=== PATIENT | male | born 1950 | race Caucasian/White ===

== ENCOUNTER 2016-08-07 10:10 | Day surgery (SDC) | payer MEDICARE, OTHER ==
[~2016-08-07] VITALS: Ht 180.3 cm; Wt 86.0 kg
[~2016-08-07 10:10] MED LIST: 0.9% Sodium Chloride 1,000 ML IV SCH; GLUC100016 PO; MVI PO; Sodium Chloride LOK Flush 10 mL Syringe IV PRN; fentaNYL-PF 50 mCg/mL 2 mL Inj IVPUSH PRN
[2016-08-07 10:57] VITALS: BP 117/80; PULSE 54; RESP 17; O2SAT 99
--- NOTE | 2016-08-07 11:48 | PCM.ENDCOL ---
Colonoscopy Date of Service: August 07, 2016 Physician Tony Ambrocio MD Pre Procedure Diagnosis: Screening personal history of colon polyp Post Procedure Dx & Findings: Polyp hemorrhoids Procedure Colonoscopy PROCEDURE IN DETAIL: Prep adequate Withdrawal time 11 minutes After unremarkable rectal examination the Olympus video colonoscope was inserted patient's anal canal and was advanced to cecum. Landmarks were identified including the ileocecal valve and appendiceal orifice. Scope was withdrawn systematically. Visualized colonic mucosa showed healthy shiny mucosa with normal healthy-appearing vasculature. In the ascending colon, there was a 2 mm polyp which was removed completely with cold snare. In the transverse colon there was a millimeter linear polyp which was removed completely using cold snare. In the sigmoid colon, there was a 2 mm polyp which was removed completely using cold snare. In the rectum retroflexion was done which showed hemorrhoids. Anal canal was inspected carefully on the way out and hemorrhoids noted. Impression Polyps x 3 status post complete removal Personal history of colon polyps Hemorrhoids Recommendation Repeat colonoscopy in 3 years Presedation Assessment Risks and Benefits Informed consent was obtained from the patient after all risks and benefits including but not limited to drug reaction, infection, pain, bleeding, perforation, as well as alternatives were discussed. Patient monitoring Continuous pulse oximetry, cardiac monitoring, blood pressure monitoring, IV access, and oxygen at 2L per nasal cannula. Periprocedural Fentanyl: Fentanyl 125mcg Incrementally Midazolam: Midazolam 5mg Incrementally Complications There were no periprocedural complications identified. Post Procedure Plan Post Procedure Recommendations 1. Restrict activities today. 2. Resume normal activities in the morning. 3. Resume medications. 4. Patient informed of normal post procedure side effects as bloating, drowsiness, blood streaking in the stool. 5. average risk CRCS. If colon polyps come back as: -Hyperplastic- can repeat colonoscopy in 10 years -Tubular adenoma- repeat colonoscopy in 5 years -Tubulovillous/villous adenoma- repeat colonoscopy in 3 years -If any dysplasia- return to clinic as soon as possible 6. Please don't hesitate to call me with any questions. Tony Ambrocio MD August 07, 2016 11:48
[2016-08-07 11:52] VITALS: BP 115/74; PULSE 56; RESP 16; O2SAT 97
[2016-08-07 12:04] VITALS: BP 109/71; PULSE 55; RESP 16; O2SAT 98
[2016-08-07 12:08] VITALS: BP 128/81; PULSE 60; RESP 16; O2SAT 99
--- NOTE | 2016-08-12 12:20 | PATH ---
SURGICAL PATHOLOGY Attending Physician:Tony Ambrocio M.D. CASE STATUS: Signed Out PATIENT NAME: ANA LILIA BOSTON JR PID: [id number] : 1950 DATE COLLECTED:08/07/2016 22:12 SPECIMEN: 1: Colon, Biopsy 2: Colon, Biopsy 3: Colon, Biopsy CLINICAL HISTORY: 1). ASCENDING POLYP 2). TRANSVERSE POLYP 3). SIGMOID POLYP FINAL DIAGNOSIS: 1.ASCENDING COLON POLYP: TUBULAR ADENOMA. 2.TRANSVERSE COLON POLYP: TUBULAR ADENOMA. 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 NO EVIDENCE OF MALIGNANCY. [id number] NOTE: 3. 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 GROSS DESCRIPTION: The specimen is received in three formalin filled containers labeled with the patient's name. 1). The specimen is sublabeled "ascending polyp" and consists of a 0.5 x 0.2 x 0.2 CM portion of tissue which is entirely submitted in cassette 1A. 2). The specimen is sublabeled "transverse polyp" and consists of 5 portions of tissue which aggregate to 0.3 x 0.3 x 0.2 CM. The specimen is entirely submitted in cassette 2A. 3). The specimen is sublabeled "sigmoid polyp" and consists of a 0.2 x 0.2 x 0.2 CM portion of tissue which is entirely submitted in cassette 3A. 08/07/2016 DAC MICRO DESCRIPTION: 3. The lamina propria is expanded by a proliferation of small spindled cells with oval, evenly-staining nuclei. Immunocytochemistry is done to characterize the lesion. Sections, along with appropriate controls, are incubated with the following antibodies: Vimentin:Positive S100:Negative Synaptophysin:Negative CD34:Negative This test was developed and its performance characteristics determined by [employer]. It has not been cleared or approved by the [place]. Food and Drug Administration. The FDA has determined that such clearance or approval is not necessary. This test is used for clinical purposes. It should not be regarded as investigational or for research. ICD-9 CODES: CPT CODES: 1: 30112 2: 02164 3: 21680, 82378, 26958, 61299, 21925 Electronically Signed Out Ki Auguste MD [facility] [address], [place] [address] Technical component performed at [facility], [address], [place], [address]
== END 2016-08-07 23:59 | disposition home or self-care (01) ==
LOC: END 10:10
PROVIDERS: ATTEND Internal Medicine
DX: Z12.11 Encounter for screening for malignant neoplasm of colon (principal); Z86.010 Personal history of colon polyps; Z87.891 Personal history of nicotine dependence; D12.2 Benign neoplasm of ascending colon; D12.3 Benign neoplasm of transverse colon; D12.5 Benign neoplasm of sigmoid colon; K64.9 Unspecified hemorrhoids; E78.2 Mixed hyperlipidemia; L57.0 Actinic keratosis
CPT/HCPCS: 45385; 99153; G0500; J2250; J3010; J7030